=== PATIENT | male | born 1950 | race Caucasian/White ===

== ENCOUNTER 2020-07-27 10:24 | Observation (INO) ==
--- NOTE | 2020-07-05 10:56 | PAT Medication Instructions ---
Medication Instructions Date of Service July 05, 2020 Home Medications Medication Instructions Recorded Levi Rios #1 ea 06/28/20 acetaminophen 500 mg tablet 500 mg PO Q6H PRN allopurinol 100 mg tablet 100 mg PO BID aspirin 81 mg tablet,delayed release 81 mg PO QAM atorvastatin 40 mg tablet 40 mg PO QPM calcium carbonate 600 mg (1,500 mg)-vitamin D3 500 unit capsule 1 cap PO BID glucosamine-chondroitin 250 mg-200 mg tablet 2 tab PO BID hydrochlorothiazide 12.5 mg tablet 25 mg PO QAM lisinopril 40 mg tablet 40 mg PO QPM metoprolol succinate 100 mg tablet,extended release 24 hr 100 mg PO BID sulindac 150 mg tablet 150 mg PO BID ASK your surgeon for instructions sulindac 150 mg tablet 150 mg PO BID STOP taking 2 weeks before surgery (or as soon as possible if surgery is within 2 weeks) glucosamine-chondroitin 250 mg-200 mg tablet 2 tab PO BID DO NOT take the morning of surgery calcium carbonate 600 mg (1,500 mg)-vitamin D3 500 unit capsule 1 cap PO BID hydrochlorothiazide 12.5 mg tablet 25 mg PO QAM Take morning of surgery With a small sip of water, OTHERWISE NOTHING TO EAT OR DRINK AFTER MIDNIGHT: acetaminophen 500 mg tablet 500 mg PO Q6H PRN (okay to take up to 4 hours prior to surgery if needed) allopurinol 100 mg tablet 100 mg PO BID aspirin 81 mg tablet,delayed release 81 mg PO QAM (unless told otherwise by surgeon) metoprolol succinate 100 mg tablet,extended release 24 hr 100 mg PO BID Take evening before surgery acetaminophen 500 mg tablet 500 mg PO Q6H PRN (if needed) allopurinol 100 mg tablet 100 mg PO BID atorvastatin 40 mg tablet 40 mg PO QPM calcium carbonate 600 mg (1,500 mg)-vitamin D3 500 unit capsule 1 cap PO BID lisinopril 40 mg tablet 40 mg PO QPM metoprolol succinate 100 mg tablet,extended release 24 hr 100 mg PO BID Other Notes If you have any questions please call us at [phone] or [phone] or [phone] or [phone]
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
[2020-07-08 11:40] LABS: Basophils # (auto) 0.04 K/uL (0-0.2); Basophils % (auto) 0.5 %; Eosinophils # (auto) 0.33 K/uL (0-0.5); Hematocrit (blood only) 39.2 % (42-52); Hemoglobin 13.3 g/dL (14.0-18.0); Immature Granulocytes # (auto) 0.04 K/uL (0.00-0.02); Immature Granulocytes % (auto) 0.5 %; Lymphocytes # (auto) 2.34 K/uL (1.2-3.4); Lymphocytes % (auto) 28.4 %; Mean Corpuscular Hemoglobin 32.9 pg (25-34); Mean Corpuscular Hgb Conc 33.9 g/dL (32-36); Mean Platelet Volume 9.9 fL (7.4-10.4); Monocytes # (auto) 0.56 K/uL (0.11-0.59); Monocytes % (auto) 6.8 %; Neutrophils # (auto) 4.93 K/uL (1.4-6.5); Neutrophils % (auto) 59.8 %; Platelet Count 232 K/uL (130-400); RDW Coefficient of Variation 13.7 % (11.5-14.5); RDW Standard Deviation 48.9 fL (36.4-46.3); Red Blood Count 4.04 M/uL (4.7-6.1); White Blood Count 8.24 K/uL (4.8-10.8)
[2020-07-08 11:52] LABS: Prothrombin Time 9.9 Seconds (9.0-12.0)
--- NOTE | 2020-07-08 12:29 | XRay Report ---
TWO VIEW CHEST CLINICAL HISTORY: Nonproductive cough. Preoperative examination. FINDINGS: PA and lateral chest radiographs are obtained. No prior studies are available for compariso n at the time of dictation. The heart is top normal for projection noting atherosclerotic calcificati on of the thoracic aorta. A coronary artery stent is suspected. The lungs and pleural spaces are hung r. There is no pneumothorax. The skeletal structures are osteopenic. The bony thorax appears intact. IMPRESSION: No active disease in the chest. ACT 112: Negative or not required by law. Electronically signed by: Thuan Du M.D. 07/08/2020 12:27 PM
[2020-07-08 13:28] LABS: BUN Creatinine Ratio 30.5 (10-20); Calcium 9.8 mg/dl (8.5-10.1); Creatinine Clr Calc Pharmacy 76.3 ml/min; Est GFR (African American) 93.6; Est GFR (Non-African American) 80.8; Potassium 4.2 mmol/L (3.5-5.1)
--- NOTE | 2020-07-09 06:32 | Electrocardiogram Report ---
Test Reason : Blood Pressure : / mmHG Vent. Rate : 062 BPM Atrial Rate : 062 BPM P-R Int : 176 ms QRS Dur : 098 ms QT Int : 422 ms P-R-T Axes : 034 037 025 degrees QTc Int : 428 ms Normal sinus rhythm Normal ECG No previous ECGs available Confirmed by Tavares Bruce ([id number]) on 07/09/2020 6:32:19 AM Referred By: Zackery Malik Confirmed By:Tavares Bruce
[~2020-07-27 10:24] MED LIST: BUPIVACAINE 0.25% 30 ML VIAL ONE; BUPIVACAINE 0.5 % 5 MG/1 ML PF 10ML VIAL ONE; LR 500ML BOLUS, THEN 15ML/HR IV SCH; MISSING PHYSICIAN SIGNATURE ON ORDER SCH
[2020-07-27] MEDS ORDERED: ceFAZolin 2,000 MG/15 ML IV PUSH IV ONE (10:38)
[2020-07-27] MEDS ORDERED: FAMOTIDINE 20 MG TAB ONE (10:39)
[2020-07-27] MEDS ORDERED: ACETAMINOPHEN 500 MG TAB ONE (10:39)
[2020-07-27] MEDS ORDERED: SCOPOLAMINE 1 MG TDSY TD ONE (10:40)
[2020-07-27] MEDS ORDERED: GABAPENTIN 300 MG CAP ONE (10:40)
[2020-07-27] MEDS ORDERED: METOCLOPRAMIDE HCL 10 MG TABLET ONE (10:40)
[2020-07-27] MEDS ORDERED: TRANEXAMIC ACID / 0.7% NACL 1000MG/100ML BAG IV ONE (10:41)
--- NOTE | 2020-07-27 10:54 | History & Physical Bridge Note ---
Date of Service July 27, 2020 History & Physical Bridge Note I have examined the patient, reviewed the History & Physical and in the interval since the performance of the History & Physical I have noted the following changes of clinical significance: no changes noted
[2020-07-27] MEDS ORDERED: MIDAZOLAM HCL 1 MG/ML 2ML VIAL ONE (12:23)
[2020-07-27] MEDS ORDERED: SODIUM CHLORIDE 0.9% PF 50 ML VIAL ONE (13:00)
[2020-07-27] MEDS ORDERED: BUPIVACAINE LIPOSOME 1.3% 266 MG/20 ML VIAL ONE (13:00)
[2020-07-27] MEDS ORDERED: BUPIVACAINE 0.25% 30 ML VIAL ONE (13:00)
[2020-07-27] MEDS ORDERED: EPINEPHrine INJ 1 MG/ML AMP ONE (13:00)
[2020-07-27] MEDS ORDERED: PROPOFOL IV EMULSION 10 MG/ML 20 ML VIAL IV ONE (13:32)
[2020-07-27] MEDS ORDERED: LIDOCAINE HCL 2% 2 ML VIAL/AMP(20MG/ML) INFIL ONE (13:32)
[2020-07-27] MEDS ORDERED: ONDANSETRON INJ 2 MG/ML 2 ML VIAL ONE (13:32)
[2020-07-27] MEDS ORDERED: ePHEDrine sulfate 50 MG/ML SYR ONE (13:42)
[2020-07-27] MEDS ORDERED: GLYCOPYRROLATE 0.2 MG/ML VIAL ONE (13:42)
[2020-07-27] MEDS ORDERED: PHENYLEPHRINE 100MCG/ML 5ML SYR ONE (13:42)
--- NOTE | 2020-07-27 15:13 | Operative Report ---
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 He extensive grade 4 [id number] disease and eburnation of the entire medial compartment. He had a varus deformity to his knee. Moderate-sized joint effusion. Osteophytes primarily medially. Fluids 1300 cc. Specimens Right knee sent for pathology. Drains None. Anesthesia Type Spinal MAC Complications none Disposition Accompanied Patient To Recovery: No Disposition: Recovery Room Indications Patient is a 70-year-old male from [place] who has had a long history of bilateral knee pain discomfort right side greater than left pes been through extensive care provided locally which became less successful over time. X-rays show advanced bilateral knee DJD. Elected proceed with total knee arthroplasty. Description of Procedure Operative implants consist of: 1 Biomet Vanguard size 62.5 right posterior stabilized femoral component. 2. Biomet size 71 tibial tray. 3. 12 mm posterior stabilized polyethylene insert. 4. 28 x 8 all polypatella. The patient was taken the operating, identified, placed on the operating table supine position but all contact areas were properly padded with IV antibiotics tried by anesthesia team. A spinal anesthetic and abductor canal block had provided in the holding area. [place] catheter was placed in sterile fashion. Right thigh turn was then placed in the right lower extremities and prepped draped in usual sterile fashion. The right leg was elevated exsanguinated with use of an Esmarch and tourniquet placed at 300 mmHg. An anterior approach to the right knee was then performed through longitudinal incision centered over the patella. Sharp vessels got through subcutaneous this down the extensor mechanism. A medial parapatellar arthrotomy incision was made. Some subperiosteal dissection was carried out medially. The fat pad was resected beneath patella tendon. Lateral patellofemoral ligament was released. Patella was subluxated laterally and the knee was flexed. The osteophytes were taken off the distal femur. The ACL and PCL were then released from distal femur the tibia subluxated anteriorly. The external tibial alignment jig was then placed in the interface the tibia and adjusted 14 mm medially. Proximal tibial cut was made to remove about a millimeter bone at most from the most deficient aspect the medial till plateau. Some osteophytes were taken off medial and posterior medially. The tibia was sized to a size 71. Attention drawn the femur. The distal femur stem with a sharp drop with intramedullary canal was suction. A right 6 degree valgus cutting guide was placed but distal femoral cutting block was pinned in place. Distal femoral cut was made to take an additional 3 mm of bone off distal femur. The femur was incised to a size 62.5. The AP cutting block was pinned parallel to the epicondylar axis which was 4 degrees of external rotation. The anterior cut, anterior chamfer, posterior cut, posterior chamfer cuts were made. Box cutting guide was placed in just slight lateral box cut was made. The knee was flexed with a mallet the medial lateral menisci were excised. The osteophytes were taken off the posterior aspect of femur. Trial femoral component was placed. The tibial tray was pinned in maximum external rotation and the drill and stem punch were used to create defect in proximal to the tibial tray. Knee was then trialed and the 12 mm insert fit most appropriately. Attention drawn the patella. The patella was cleaned of all soft tissue. Patella thickness measured 21 mm in thickness was cut down to 13. Was sized to a size 28 patella. The lug holes were drilled for the 28 patella. The lateral osteophyte was removed. Patella button was placed. Knee was taken through range of motion and the patella tracked nicely with no thumbs test. Attention turned to placing permanent components. All trial components were removed. A bone plug was placed in the distal femur limit blood loss put a double batch [place] G cement was mixed. Biomet Vanguard size 62.5 right posterior stabilized femoral component, size 71 tibial tray, 12 mm posterior stabilized polyethylene insert, and a 28 x 8 all polypatella then cemented in place. Knee was brought out in full extension total cement hardened. Final cement check was then performed. Pericapsular tissues were injected with 100 cc of a combination of 20 cc of Exparel, 30 cc normal saline, 50 cc of quarter percent Marcaine with epinephrine. Patient did receive 1 g tranexamic acid. The tourniquet was then let down for turn time 55 minutes. Hemostasis surgery electrocautery. The wound was once again irrigated. The extensor mechanism closed with combination 1 PDS suture #1 Vicryl suture in [id number] fashion with extensor Maxon checked found to be intact the subcutaneous tissue then closed 2 Dexon suture in a buried interrupted fashion skin was closed skin braulio. Leg was then cleaned dried and sterile dressed composed Xeroform, 4 x 4's, sterile cast padding, Jayme bandage were applied. Patient then transferred to the recovery room in stable condition. Patient tolerated procedure well and there were no complications. Anshu Norman, my physician assistant site manager, was present for the entire procedure. His assistance was essential and required for appropriate patient positioning, prepping and draping, surgical exposure, performing the technical details of the operation, placement the implants, closure of the wound, and placement of the sterile bandage. I attest to the content of the Intraoperative Record and any orders documented therein. Any exceptions are noted below.
--- NOTE | 2020-07-27 15:15 | Anesthesiology Progress Note ---
Date of Service July 27, 2020 Anesthesia Post Procedure Vital Signs Vital Signs: Temp Pulse Resp BP Pulse Ox 07/27/20 11:30 36.9 C 73 18 130/72 96 07/27/20 11:12 36.7 C 67 16 121/63 98 Transfer of Care Handoff Completed per policy Notes Mental Status: alert / awake / arousable and participated in evaluation Patient Amnestic to Procedure: Yes Nausea / Vomiting: adequately controlled Pain: adequately controlled Airway Patency, RR, SpO2: stable & adequate BP & HR: stable & adequate Hydration State: stable & adequate Neuraxial Anesthesia: was administered and sensory block is resolving Anesthetic Complications: no major complications apparent and Pt Satisfied with anesthetic care
--- NOTE | 2020-07-27 15:22 | XRay Report ---
XR knee RT 1 or 2V routine CLINICAL HISTORY: Postoperative evaluation. COMPARISON: Knee radiographs June 28, 2020. FINDINGS: Alignment of the total right knee arthroplasty is anatomic. There is no periprosthetic fra cture or unexpected radiopaque foreign body. Hardware is intact. IMPRESSION: Expected findings following total right knee arthroplasty. ACT 112: Negative or not required by law. Electronically signed by: Talat Chapin M.D. 07/27/2020 3:21 PM
[2020-07-27] MEDS ORDERED: ONDANSETRON INJ 2 MG/ML 2 ML VIAL IV PRN (16:03)
[2020-07-27] MEDS ORDERED: ALUMINUM/MAGNESIUM SUSP 30 ML UDC PO PRN (16:03)
[2020-07-27] MEDS ORDERED: METOCLOPRAMIDE HCL INJ 5 MG/ML 2 ML VIAL IV PRN (16:03)
[2020-07-27] MEDS ORDERED: NALOXONE HCL 0.4 MG/1 ML VIAL/CARP IV PRN (16:03)
[2020-07-27] MEDS ORDERED: TAMSULOSIN HCL 0.4 MG CAP PO PRN (16:03)
[2020-07-27] MEDS ORDERED: NO NSAIDS SCH (16:03)
[2020-07-27] MEDS ORDERED: MAGNESIUM HYDROXIDE SUSP 30 ML UDC PO PRN (16:03)
[2020-07-27] MEDS ORDERED: bisacodyL 10 MG SUPP PR PRN (16:03)
[2020-07-27] MEDS ORDERED: KETOROLAC TROMETHAMINE 15 MG/ML VIAL IV SCH (16:03)
[2020-07-27] MEDS: SODIUM CHLORIDE 0.9% 1000ML 1,000 ML IV SCH (16:41)
[2020-07-27] MEDS: ASCORBIC ACID 500 MG TAB PO SCH (17:29)
[2020-07-27] MEDS: FERROUS GLUCONATE 324 MG TAB PO SCH (17:29)
[2020-07-27] MEDS: HYDROmorphone INJ 0.5 MG/0.5 ML SYR IV PRN ×2 (19:31→23:15)
[2020-07-27] MEDS: traMADol HCL 50 MG TABLET PO PRN (20:45)
[2020-07-27] MEDS ORDERED: SENNA 8.6 MG TAB PO SCH (21:00)
[2020-07-27] MEDS ORDERED: lisinopril 40 MG TAB PO SCH (21:00)
[2020-07-27] MEDS ORDERED: ATORVASTATIN 40 MG TAB PO SCH (21:00)
[2020-07-27] MEDS ORDERED: TRANEXAMIC ACID / 0.7% NACL 1,000 MG/100 ML BAG IV SCH (21:02)
[2020-07-27] MEDS: ceFAZolin 1000MG 1,000 MG/7.5 ML SYR IV SCH (21:57)
[2020-07-27] MEDS: allopurinoL 100 MG TAB PO SCH (22:00)
[2020-07-27] MEDS: CALCIUM 600MG + VIT D 400 IU TAB PO SCH (22:00)
[2020-07-27] MEDS: ASPIRIN 81 MG ECTAB PO SCH (22:02)
[2020-07-27] MEDS: DOCUSATE SODIUM 100 MG CAP PO SCH (22:03)
[2020-07-27] MEDS: METOPROLOL SUCC 50MG EXT REL TAB PO SCH (22:03)
[2020-07-27] MEDS: ACETAMINOPHEN 500 MG TAB PO SCH (22:04)
[2020-07-27] MEDS: PROSOURCE NO CARB 30 ML/PKT PO SCH ×2 (22:04→22:16)
[2020-07-28] MEDS: ceFAZolin 1000MG 1,000 MG/7.5 ML SYR IV SCH (04:44)
[2020-07-28] MEDS: SODIUM CHLORIDE 0.9% 1000ML 1,000 ML IV SCH (04:45)
[2020-07-28] MEDS: ACETAMINOPHEN 500 MG TAB PO SCH ×2 (05:11→14:15)
[2020-07-28] MEDS: traMADol HCL 50 MG TABLET PO PRN ×2 (05:13→11:12)
[2020-07-28 06:30] LABS: Hematocrit (blood only) 31.1 % (42-52); Hemoglobin 10.7 g/dL (14.0-18.0); Mean Corpuscular Hgb Conc 34.4 g/dL (32-36); Mean Platelet Volume 9.7 fL (7.4-10.4); Platelet Count 198 K/uL (130-400); RDW Coefficient of Variation 13.7 % (11.5-14.5); Red Blood Count 3.24 M/uL (4.7-6.1); White Blood Count 9.38 K/uL (4.8-10.8)
[2020-07-28 07:08] LABS: Calcium 8.3 mg/dl (8.5-10.1); Creatinine Clr Calc Pharmacy 80.1 ml/min; Est GFR (African American) 99.9; Est GFR (Non-African American) 86.2; Potassium 3.6 mmol/L (3.5-5.1)
[2020-07-28] MEDS ORDERED: dexAMETHasone 4 MG TAB PO SCH (08:00)
[2020-07-28] MEDS: CALCIUM 600MG + VIT D 400 IU TAB PO SCH (08:54)
[2020-07-28] MEDS: METOPROLOL SUCC 50MG EXT REL TAB PO SCH (08:54)
[2020-07-28] MEDS: ASCORBIC ACID 500 MG TAB PO SCH ×2 (08:55→16:50)
[2020-07-28] MEDS: allopurinoL 100 MG TAB PO SCH (08:55)
[2020-07-28] MEDS: ASPIRIN 81 MG ECTAB PO SCH (08:55)
[2020-07-28] MEDS: FERROUS GLUCONATE 324 MG TAB PO SCH ×2 (08:55→16:50)
[2020-07-28] MEDS: PROSOURCE NO CARB 30 ML/PKT PO SCH ×2 (08:56→14:15)
[2020-07-28] MEDS: DOCUSATE SODIUM 100 MG CAP PO SCH (08:56)
[2020-07-28] MEDS ORDERED: hydroCHLOROthiazide 25 MG TAB PO SCH (09:00)
[2020-07-28] MEDS ORDERED: MULTIVITAMIN TAB PO SCH (09:00)
--- NOTE | 2020-07-28 16:04 | Progress Notes ---
DATE: 07/28/2020 SUBJECTIVE: A 70-year-old gentleman postop day 1 from a right knee replacement. He is doing well. Pain is controlled. Therapy went well. No chest pain or shortness of breath. Not feeling dizzy or lightheaded. OBJECTIVE: VITAL SIGNS: Temperature 37.0. Vital signs stable. GENERAL: Shows a pleasant, middle-aged male. He is sitting up in bed, looks comfortable. LUNGS: Clear to auscultation. HEART: Has a regular rate and rhythm. ABDOMEN: Soft, nontender, nondistended. EXTREMITIES: Grossly neurovascularly intact except as follows. Examination of the right knee reveals the dressing to be in place. No drainage. His calf is soft and supple. He can dorsiflex and plantarflex his foot appropriately. He can do a straight leg raise with some effort. LABORATORY DATA: Hemoglobin is 10.7. Hematocrit 31.1. Electrolytes are stable. ASSESSMENT: A 70-year-old gentleman postop day 1 from right knee replacement, doing well. Pain is controlled. Neurologically intact. PLAN: 1. DVT prophylaxis including thigh-high TEDs, SCDs, and aspirin twice a day. 2. PT/OT. Weight bear as tolerated. Right total knee protocol. 3. Pain control, doing well with current pain regimen. 4. Disposition: Plan to discharge to home with some home health likely later today.
== END 2020-07-28 18:34 | disposition home health service (06) ==
LOC: ASU 10:24 → 3E 10:24

== ENCOUNTER 2020-12-01 08:44 | Observation (INO) ==
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
[~2020-12-01 08:44] MED LIST changes: +ACETAMINOPHEN 500 MG TAB PO SCH; -BUPIVACAINE 0.25% 30 ML VIAL ONE; +BUPIVACAINE LIPOSOME/PF 266 MG, BUPIVACAINE/EPINEPHRINE 50 ML, SODIUM CHLORIDE 0.9% 30 ... INFIL SCH; +EPINEPHrine INJ 1 MG/ML AMP ONE; +FAMOTIDINE 20 MG TAB PO SCH; +GABAPENTIN 300 MG CAP PO SCH; +LACTATED RINGER'S 1,000 ML IV SCH; -LR 500ML BOLUS, THEN 15ML/HR IV SCH; +LR 60ML/HR IV SCH; +METOCLOPRAMIDE HCL 10 MG TABLET PO SCH; +MIDAZOLAM HCL 1 MG/ML 2ML VIAL ONE; -MISSING PHYSICIAN SIGNATURE ON ORDER SCH; +PHENYLEPHRINE HCL 10 MG/ML VIAL ONE; +PROPOFOL IV EMULSION 10 MG/ML 20 ML VIAL IV ONE; +ROPIVACAINE 0.5% 5 MG/ML 30 ML VIAL ONE; +TRANEXAMIC ACID 1,000 MG **IV Intra-op IV SCH; +ceFAZolin 2000MG 2,000 MG/15 ML SYR IV SCH; +fentaNYL citrate 100 MCG/2 ML VIAL ONE
--- NOTE | 2020-12-01 08:59 | History & Physical Bridge Note ---
Date of Service December 01, 2020 History & Physical Bridge Note I have examined the patient, reviewed the History & Physical and in the interval since the performance of the History & Physical I have noted the following changes of clinical significance: no changes noted
[2020-12-01] MEDS ORDERED: SODIUM CHLORIDE 0.9% PF 50 ML VIAL ONE (11:29)
[2020-12-01] MEDS ORDERED: BUPIVACAINE LIPOSOME 1.3% 266 MG/20 ML VIAL ONE (11:29)
[2020-12-01] MEDS ORDERED: EPINEPHrine INJ 1 MG/ML AMP ONE (11:30)
[2020-12-01] MEDS ORDERED: BUPIVACAINE 0.25% 30 ML VIAL ONE (11:30)
[2020-12-01] MEDS ORDERED: PHENYLEPHRINE HCL 10 MG/ML VIAL ONE (12:00)
[2020-12-01] MEDS ORDERED: ePHEDrine sulfate 50 MG/ML SYR ONE (12:01)
[2020-12-01] MEDS ORDERED: PROPOFOL IV EMULSION 10 MG/ML 20 ML VIAL IV ONE ×2 (12:30)
[2020-12-01] MEDS ORDERED: ATROPINE SULFATE 0.1 MG/ML 10ML SYR IV PRN (12:37)
[2020-12-01] MEDS ORDERED: ePHEDrine sulfate 50 MG/ML AMP IV PRN (12:37)
--- NOTE | 2020-12-01 13:51 | Operative Report ---
Post Operative Report Pre & Post Diagnosis Operation Date: 12/01/20 10:40 Pre-Op Diagnosis: Left Knee Osteoarthritis Post-Op Diagnosis: Left Knee Osteoarthritis I identified the patient and participated in the time-out.: Yes Procedure Operation Date: 12/01/20 10:40 Actual Procedures p Left Total Knee Arthroplasty(Left) - Zackery Malik MD Surgeon Zackery Malik MD [place] Anshu Norman PA-C Estimated Blood Loss 50 Findings Consistent with Post-Op Diagnosis Operative findings were advanced left knee DJD. He had extensive grade 4 [id number] disease and eburnation of the medial compartment with osteophytes primarily medially. He had a fixed varus deformity and a slight flexion contracture. He did have some spotty grade 4 changes in the patellofemoral as well as the lateral compartment. Fluids 1400 cc Specimens Left knee sent for pathology. Anesthesia Type Spinal MAC Complications none Disposition Accompanied Patient To Recovery: No Indications Patient is 70-year-old gentleman said a long history of bilateral knee pain discomfort. They have been through extensive conservative treatment became less successful over time. He is right knee replaced 4 months ago is done well from this. He continues to be limited by left knee pain discomfort stiffness and deformity. He elected proceed with left total knee arthroplasty. Description of Procedure Operative implants consist of: 1 Biomet Vanguard size 62.5 left posterior stabilized femoral component. 2. Biomet size 71 tibial tray. 3. 12 mm posterior stabilized polyethylene insert. 4. 31 x 8 all polypatella. The patient was taken to the operating, identified, placed on the operating table supine position but all contact areas were properly padded. IV antibiotics tried by anesthesia team. A spinal anesthetic and abductor canal block had provided holding area. Livingston catheter was placed in sterile fashion. A left thigh turn was then placed in the left lower extremities and prepped and draped in usual sterile fashion. The left leg was elevated exsanguinated with use of an Esmarch and turns placed at 3 mmHg. An anterior posterior left knee was then performed through longitudinal incision centered over the patella. Sharp dissection was carried through subcutaneous this down to the extensor mechanism. A medial parapatellar arthrotomy incision was made. Some subperiosteal dissection was carried out medially. The fat pad was resected beneath patella tendon. The lateral patellofemoral ligament was released. Patella subluxated laterally. The knee was flexed. The osteophytes were taken off distal femur. The ACL and PCL were then released from distal femur the tibia subluxated anteriorly. The external tibial alignment jig was then placed in the interface the tibia and adjusted 14 mm medially. Proximal tibial cut was made to remove about a millimeter bone at best from the medial side. He had pretty significant deformity. Some osteophytes taken off medial and posterior medially. Tibia sized to a size 71. Attention drawn the femur. The distal femur examined the sharp drop with intramedullary canal was suction. A left 6 degree valgus cutting guide was placed. The distal femoral cutting block was pinned in place. Distal femoral cut was made to take an additional 3 mm bone off distal femur. The femur was then sized to a size 62.5. The AP cutting block was pinned parallel to the epicondylar axis which was 5 degrees of external rotation. The anterior cut, anterior chamfer, posterior cut, posterior chamfer cuts were made. The box cutting guide was placed in just slight lateral box cut was made. The knee was flexed. The remnants of the medial and lateral menisci were excised. The osteophytes were taken off the posterior aspect of femur. Trial femoral component was placed. Tibial tray was pinned in maximum external rotation and the drill and stem punch used to create defect in proximal tibia for the tibial tray. Knee was then trialed and the 12 mm insert fit most appropriately. Attention drawn the patella. Nipride the patella was cleaned of all soft tissue. Patella thickness measured 22 mm in thickness was cut down to 14. Was sized to a size 31 patella. The lug holes were drilled for the 31 patella. The lateral osteophyte was removed. Patella button was placed. The knee was taken through range of motion patella and the patella tracked nicely with no thumbs test. Attention drawn to placing permanent components. All trial components were removed. Bone plug was placed into the distal femur limit blood loss. Double batch Pal[place]os G cement was mixed. Biomet Vanguard size 62.5 left posterior stabilized femoral component, size 71 tibial tray, a 12 mm posterior stabilized polyethylene insert, and 31 x 8 all polypatella were then cemented in place. Knee was brought out into full extension until cement hardened. Final cement checkup then performed. Pericapsular tissues were injected with total 100 cc of combination of 20 cc of Exparel, 30 cc normal saline, 50 cc of quarter percent Marcaine with epinephrine. Patient did receive 1 g tranexamic acid. The tourniquet was let down for turn time 60 minutes. Hemostasis assured use electrocautery. Extensor mechanism closed with combination 1 PDS suture #1 Vicryl suture in [id number] fashion. Extensor mechanism checked and found to be intact and subcutaneous tissue then closed with 2 Dexon suture in a buried interrupted fashion skin was closed skin braulio. Leg was then cleaned and dried and sterile dressing with Xeroform, 4 x 4's, sterile cast padding, Jayme bandage applied. Patient then transferred to the recovery room in stable condition. Patient tolerated procedure well and there were no complications. Anshu Norman, my physician therapeutic recreation assistant, was present for the entire procedure. His assistance was essential and required for appropriate patient positioning, prepping and draping, surgical exposure, performing the technical details of the operation, placement the implants, closure of the wound, and placement of the sterile bandage. I attest to the content of the Intraoperative Record and any orders documented therein. Any exceptions are noted below.
--- NOTE | 2020-12-01 14:33 | Anesthesiology Progress Note ---
Date of Service December 01, 2020 Anesthesia Post Procedure Vital Signs Vital Signs: Temp Pulse Pulse Resp BP Pulse Ox 12/01/20 14:25 36.3 C L 78 12 123/62 98 12/01/20 14:15 79 15 123/75 95 12/01/20 14:05 80 13 127/69 99 12/01/20 13:55 79 14 129/70 99 12/01/20 13:45 36.2 C L 83 12 142/73 H 98 12/01/20 09:31 36.6 C 65 18 123/94 95 Transfer of Care Handoff Completed per policy Notes Mental Status: alert / awake / arousable and participated in evaluation Nausea / Vomiting: adequately controlled Pain: adequately controlled Airway Patency, RR, SpO2: stable & adequate BP & HR: stable & adequate Hydration State: stable & adequate Neuraxial Anesthesia: was administered and sensory block is resolving Anesthetic Complications: no major complications apparent and Pt Satisfied with anesthetic care
[2020-12-01] MEDS ORDERED: TAMSULOSIN HCL 0.4 MG CAP PO PRN (15:04)
[2020-12-01] MEDS ORDERED: oxyCODONE HCL IR 5 MG TAB (IMMEDIATE RELEASE) PO PRN (15:04)
[2020-12-01] MEDS ORDERED: ONDANSETRON INJ 2 MG/ML 2 ML VIAL IV PRN (15:04)
[2020-12-01] MEDS ORDERED: HYDROmorphone INJ 0.5 MG/0.5 ML SYR IV PRN (15:04)
[2020-12-01] MEDS ORDERED: MAGNESIUM HYDROXIDE SUSP 30 ML UDC PO PRN (15:04)
[2020-12-01] MEDS ORDERED: ALUMINUM/MAGNESIUM SUSP 30 ML UDC PO PRN (15:04)
[2020-12-01] MEDS ORDERED: bisacodyL 10 MG SUPP PR PRN (15:04)
[2020-12-01] MEDS ORDERED: METOCLOPRAMIDE HCL INJ 5 MG/ML 2 ML VIAL IV PRN (15:04)
[2020-12-01] MEDS ORDERED: NALOXONE HCL 0.4 MG/1 ML VIAL/CARP IV PRN (15:04)
--- NOTE | 2020-12-01 15:23 | XRay Report ---
TWO VIEWS LEFT KNEE CLINICAL HISTORY: Postoperative examination. FINDINGS: AP and crosstable lateral portable views of the left knee are obtained. A left knee arthrop lasty is in near anatomic alignment. There has been undersurface remodeling of the patella. No acute fracture is seen. There are expected postoperative changes around the knee including skin clips, soft tissue edema, and subcutaneous gas. IMPRESSION: Expected postoperative changes status post left knee arthroplasty. No acute fracture is s een. ACT 112: Negative or not required by law. Electronically signed by: Thuan Du M.D. 12/01/2020 3:21 PM
[2020-12-01] MEDS: KETOROLAC TROMETHAMINE 15 MG/ML VIAL IV SCH ×2 (16:37→22:38)
[2020-12-01] MEDS: SODIUM CHLORIDE 0.9% 1000ML 1,000 ML IV SCH (16:37)
[2020-12-01] MEDS: ACETAMINOPHEN 500 MG TAB PO SCH ×2 (16:38→22:38)
[2020-12-01] MEDS: ASCORBIC ACID 500 MG TAB PO SCH (16:38)
--- NOTE | 2020-12-01 17:45 | Progress Notes ---
DATE OF SERVICE: 12/01/2020 SUBJECTIVE: A 70-year-old gentleman postop from a left knee replacement. He is doing pretty well. Not really having much pain yet. No chest pain or shortness of breath. Not feeling dizzy or lighth eaded. OBJECTIVE: VITAL SIGNS: Temperature 36.6. Vital signs stable. PHYSICAL EXAMINATION: GENERAL: Shows a pleasant middle-aged male, he is sitting up in bed and looks pretty comfortable. LUNGS: Clear to auscultation. HEART: Regular rate and rhythm. ABDOMEN: Soft, nontender, nondistended. EXTREMITIES: Grossly neurovascularly intact except as follows: Examination of the left leg reveals the leg to be well aligned. Dressing is clean, dry and intact. He can dorsiflex and plantarflex his foot appropriately. He is neurologically intact. X-RAYS: X-rays of the left knee from recovery room are reviewed. It shows a left cemented posterior stabilized total knee arthroplasty. Components looked to be in good position. No signs of problems . ASSESSMENT: A 70-year-old gentleman postoperative from a left knee replacement, doing well. Pain is controlled. He is neurologically intact. PLAN: 1. DVT prophylaxis includes thigh-high TEDs, SCDs, and aspirin twice a day. 2. PT, OT, weightbear as tolerated. Left total knee protocol. 3. Pain control, doing well with current pain regimen. 4. IV antibiotics x24 hours. 5. Disposition: Plan to discharge to home with some home health once adequately recovered and medic ally stable. Job ID: [id number]
[2020-12-01] MEDS: ceFAZolin 2000MG 2,000 MG/15 ML SYR IV SCH (19:36)
[2020-12-01] MEDS ORDERED: TRANEXAMIC ACID / 0.7% NACL 1,000 MG/100 ML BAG IV SCH (20:00)
[2020-12-01] MEDS: DOCUSATE SODIUM 100 MG CAP PO SCH (20:20)
[2020-12-01] MEDS: CALCIUM 600MG + VIT D 400 IU TAB PO SCH (20:21)
[2020-12-01] MEDS: ASPIRIN 81 MG ECTAB PO SCH (20:21)
[2020-12-01] MEDS: allopurinoL 100 MG TAB PO SCH (20:21)
[2020-12-01] MEDS: METOPROLOL TARTRATE 50 MG TAB PO SCH (20:35)
[2020-12-01] MEDS: TAPENTADOL HCL ER 50 MG TABCR PO SCH (20:35)
[2020-12-01] MEDS ORDERED: NON-FORMULARY MEDICATION (Amino Acids [Amino Acid] Capsule) PO SCH (21:00)
[2020-12-01] MEDS ORDERED: SENNA 8.6 MG TAB PO SCH (21:00)
[2020-12-01] MEDS ORDERED: ATORVASTATIN 40 MG TAB PO SCH (21:00)
[2020-12-01] MEDS ORDERED: lisinopril 40 MG TAB PO SCH (21:00)
[2020-12-02] MEDS: SODIUM CHLORIDE 0.9% 1000ML 1,000 ML IV SCH (02:27)
[2020-12-02] MEDS: ceFAZolin 2000MG 2,000 MG/15 ML SYR IV SCH (04:55)
[2020-12-02] MEDS: KETOROLAC TROMETHAMINE 15 MG/ML VIAL IV SCH ×2 (04:55→10:20)
[2020-12-02] MEDS: ACETAMINOPHEN 500 MG TAB PO SCH (05:02)
[2020-12-02 06:30] LABS: Hematocrit (blood only) 31.8 % (42-52); Hemoglobin 10.4 g/dL (14.0-18.0); Mean Corpuscular Hemoglobin 30.7 pg (25-34); Mean Corpuscular Hgb Conc 32.7 g/dL (32-36); Mean Corpuscular Volume 93.8 fL (80-100); Mean Platelet Volume 9.7 fL (7.4-10.4); Platelet Count 188 K/uL (130-400); RDW Coefficient of Variation 13.9 % (11.5-14.5); Red Blood Count 3.39 M/uL (4.7-6.1); White Blood Count 6.35 K/uL (4.8-10.8)
[2020-12-02 07:09] LABS: BUN Creatinine Ratio 22.7 (10-20); Calcium 8.6 mg/dl (8.5-10.1); Creatinine Clr Calc Pharmacy 83.4 ml/min; Est GFR (African American) 100.9 ml/min; Potassium 3.3 mmol/L (3.5-5.1)
[2020-12-02] MEDS ORDERED: POTASSIUM CHLORIDE CRTAB 20 MEQ TABCR PO ONE (07:26)
[2020-12-02] MEDS ORDERED: dexAMETHasone 10 MG in SYRINGE 0 ML IV SCH (08:00)
[2020-12-02] MEDS: TAPENTADOL HCL ER 50 MG TABCR PO SCH (08:33)
[2020-12-02] MEDS: METOPROLOL TARTRATE 50 MG TAB PO SCH (08:33)
[2020-12-02] MEDS: DOCUSATE SODIUM 100 MG CAP PO SCH (08:33)
[2020-12-02] MEDS: ASPIRIN 81 MG ECTAB PO SCH (08:34)
[2020-12-02] MEDS: allopurinoL 100 MG TAB PO SCH (08:34)
[2020-12-02] MEDS: CALCIUM 600MG + VIT D 400 IU TAB PO SCH (08:34)
[2020-12-02] MEDS: ASCORBIC ACID 500 MG TAB PO SCH (08:34)
--- NOTE | 2020-12-02 08:53 | Progress Notes ---
DATE OF NOTE: 12/02/2020. SUBJECTIVE: A 70-year-old gentleman postoperative day 1 from a left knee replacement. He is doing w ell. He had a pretty good night. Pain is very manageable. No chest pain or shortness of breath. N ot feeling dizzy or lightheaded. OBJECTIVE: VITAL SIGNS: Temperature 36.6. Vital signs are stable. GENERAL: Shows a pleasant middle-aged male. Sitting up on bed and looks pretty comfortable. EXTREMITIES: Examination of the left leg reveals the dressing is clean, dry and intact. He can dors iflex and plantarflex his foot appropriately. He is neurologically intact. LABORATORY DATA: Hemoglobin 10.4. Hematocrit 31.8. Electrolytes are stable. Potassium is a little bit low at 3.3. ASSESSMENT: A 70-year-old gentleman postoperative day 1 from left knee replacement, doing well. Divya n is controlled. He is neurologically intact. Potassium is a little bit low and we will supplement that. PLAN: 1. DVT prophylaxis include thigh-high TEDs, SCDs, and aspirin twice a day. 2. PT, OT, weightbear as tolerated. Left total knee protocol. 3. Pain control, doing well with current pain regimen. 4. Hypokalemia, we will supplement potassium. 5. Disposition: Plan to discharge to home with some home health likely later today. Job ID: [id number]
[2020-12-02] MEDS ORDERED: MULTIVITAMIN TAB PO SCH (09:00)
[2020-12-02] MEDS ORDERED: hydroCHLOROthiazide 25 MG TAB PO SCH (09:00)
== END 2020-12-02 14:30 | disposition home health service (06) ==
LOC: 3E 08:44 → ASU 08:44